=== PATIENT | male | born 1960 | race Caucasian/White ===

== ENCOUNTER 2024-12-11 11:25 | Emergency (ER) | payer MEDICARE, SELFPAY ==
[2024-12-11 11:41] VITALS: BP 152/71; PULSE 60; RESP 20; TEMP 36.8; O2SAT 97
--- NOTE | 2024-12-11 11:49 | ED.WOUNDLAC ---
HPI - Wound/Laceration General Chief Complaint: Wound/Laceration Stated Complaint: Left Hand Middle Finger Laceration patient presents to the [facility] accompanied by spouse with complaints of injury to left index and middle fingers just prior to arrival at [facility]. 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 Patient believes he may have taken a small chunk out of the middle finger. Patient unsure of when his last tetanus vaccination was. Patient reports holding pressure to the area but no other remedies attempted to stop bleeding. Some numbness, tingling, and shooting pain in the left middle finger. Related Data Home Medications ?Medication ?Instructions ?Recorded ?Confirmed ?Last Taken ?Type aspirin 81 mg tablet,delayed 81 mg PO DAILY 12/11/24 Unknown History release (Adult Aspirin Regimen) Allergies Allergy/AdvReac Type Severity Reaction Status Date / Time No Known Allergies Allergy Verified 12/11/24 12:05 Review of Systems Constitutional: Constitutional: Reports as per HPI, Denies chills, Denies fatigue, Denies fever(s) and Denies weakness Eyes: Eyes: Reports no additional eye complaints ENT: Reports system reviewed and no additional complaints, except as documented Cardiovascular: Cardiovascular: Reports no additional cardiovascular complaints Respiratory: Respiratory: Reports no additional respiratory complaints Gastrointestinal: Gastrointestinal: Reports no additional gastrointestinal complaints Genitourinary: Genitourinary: Reports no additional male genitourinary complaints Musculoskeletal: Musculoskeletal: Reports as per HPI, Reports arthralgias and Denies joint swelling Integumentary/Breasts: Skin/Breast: Reports as per HPI Comments: Laceration left middle and index finger Neurologic: Reports as per HPI, Denies headache(s), Reports numbness and Denies weakness Psychiatric: Psychiatric: Reports no additional psychiatric complaints Endocrine: Endocrine: Reports no additional endocrine complaints Hematologic/Lymphatic: Hematologic/Lymphatic: Reports no additional hematologic/lymphatic complaints Allergic/Immunologic: Allergic/Immunologic: Reports no additional allergic/immunologic complaints Exam Const: General: healthy appearing and no acute distress Nutritional Appearance: well nourished Orientation/consciousness: patient oriented x3 Limitations: no limitations Resp: Effort & Inspection: normal respiratory effort Auscultation: clear to auscultation bilaterally Cardio: Rate: regular rate Rhythm: regular rhythm Skin: General skin exam: normal color Rashes: no rashes Wounds: wounds noted Other: small c-shaped laceration to left index finger- 0.7cm long. large avulsion to left middle finger palmar side 2.5cm in diameter- moderate bleeding noted. open wound bed with adipose tissue throughout. no tendon, muscle, or bone open from wound. Neuro: General: patient oriented x3 and moves all extremities Speech: normal speech Gait exam (Neuro): Normal gait present Extrem: Left upper extremity: hand (large avulsion/open wound 3rd digit 2.5cm in diameter. ) abnormal to inspection, normal capillary refill, neuromotor exam normal, neurosensory exam normal, tendon exam normal, tenderness, normal ROM of fingers and laceration (2nd digit, palmar side .7cm long c-shaped. ); no swelling Psych: Mental Status: mental status grossly normal Affect: normal affect Attitude: cooperative Course Course Level of Care: Express Care Visit Vital Signs Vital signs: Vital Signs Temperature 98.3 F 12/11/24 11:41 Pulse Rate 60 12/11/24 11:41 Respiratory Rate 20 12/11/24 11:41 Blood Pressure 152/71 H 12/11/24 11:41 Pulse Oximetry 97 12/11/24 11:41 Oxygen Delivery Room Air 12/11/24 11:41 Temperature 98.3 F 12/11/24 11:41 Pulse Rate 60 12/11/24 11:41 Respiratory Rate 20 12/11/24 11:41 Blood Pressure 152/71 H 12/11/24 11:41 Pulse Oximetry 97 12/11/24 11:41 Oxygen Delivery Room Air 12/11/24 11:41 Procedures Laceration Laceration 1: Date: 12/11/24 Time: 12:04 Site: hand Side (If applicable): left Size (cm): 2.5 Description: other (avulsion) Depth: simple, single layer (all skin removed down to adipose tissue ) Pre-repair: wound explored, irrigated extensively and deep structures intact ====== Skin Level ====== Skin layer closed with: other (bleeding controlled with surgicel ) ====== Subcutaneous Layer ====== ====== Muscle Layer ====== ====== Tendon Layer ====== Dressing: surgicel with pressure dressing using coban. Laceration 2: Date: 12/11/24 Time: 12:10 Site: hand Side (If applicable): left (2nd digit) Size (cm): 0.7 Description: linear (c-chaped) Depth: simple, single layer Pre-repair: wound explored, irrigated and deep structures intact ====== Skin Level ====== Skin layer closed with: dermabond ====== Subcutaneous Layer ====== ====== Muscle Layer ====== ====== Tendon Layer ====== MDM - Wound/Laceration MDM Narrative Medical decision making narrative: large open wound noted to the middle finger. Bleeding controlled with Surgicel, no protrusion or visualization muscle, tendon, or bone. Only fatty tissue and wound bed. Educated patient on cleaning wound and wound care very small laceration noted to index finger closed with dermabond. The patient was evaluated by myself in the [facility]. 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 Available medical records were reviewed at this time. Exam findings show no acute concerns or changes; patient is non-toxic appearing and is in no distress. Patient is appropriate for outpatient treatment and follow-up. I have evaluated and discussed social determinants of health with the patient that could potentially impact subsequent diagnosis and treatment plans. Differential diagnosis and treatment plan were discussed with the patient. Patient agrees with discussion and after shared medical decision making agrees with plan of care. All questions were answered to the patient's satisfaction. Differential Diagnosis Differential diagnosis: Likely laceration, abrasion and avulsion of skin Medical Records Attestation: I reviewed the patient's medical records. Discharge Plan Discharge Clinical Impression: Open wound of left middle finger, Laceration of left index finger w/o foreign body w/o damage to nail Patient Disposition: Home Condition: Stable Instructions: Antibiotic Form, Skin Adhesive Care (ED), Acute Wounds (ED) Additional Instructions: we have got your wound to stop bleeding using Surgicel which is a type of bandage that clots the wound. Leave this on for 48 hours. Soak in warm water to remove this bandage until it comes off easily. Do not pull or this can cause more bleeding. if you continue to have bleeding we may do another round of the Surgicel bandage that we have given to you upon discharge at [facility] after removing this bandage used gentle wound care daily with warm water and gentle soap. do not use alcohol or peroxide then may apply Vaseline or Aquaphor to the area and cover with a bandage watch for signs and symptoms of infection including redness, colored drainage, increased pain, or swelling to the area. Follow-up with primary care in 1 week if symptoms not improving Skin adhesive care: -adhesive works like a bandage; do not use antibiotic ointment as it can break down the adhesive -You can shower while the adhesive is on your skin, but do not take a bath or soak or scrub the area for 7-10 days. Dry your skin by patting it gently with a towel. -The adhesive will peel off on its own; usually by 5-10days. If after 10 days, you still have adhesive on you, you can use antibiotic ointment or petroleum jelly to get it off. After you heal, you should protect the scar from the sun. Use sunscreen on the area or wear clothes or a hat that covers the scar. Follow up with your PCP is needed Patient Language: Swedish Follow-up/Referrals: Jose Mccoy MD [Physician, Plastic Surgery] Referral Note: call if complications from wound on left middle finger. Dangelo,Walter Osullivan MD [Primary Care Provider, Unknown] Time of Disposition: 12:15
[2024-12-11] MEDS: CELLULOSE OXIDIZED 2 x 14 INCH 1 PKT XX (12:05)
[2024-12-11] MEDS: TETANUS,DIPHTHERIA,AC PERTUSSIS ADULT (0.5 ML) BOOSTRIX IM (12:06)
== END 2024-12-11 12:20 | disposition home or self-care (01) ==
PROVIDERS: Emergency Provider Nurse Practitioner Family; PCP Internal Medicine
DX: S61.211A Laceration without foreign body of left index finger without damage to nail, initial encounter (principal); S61.203A Unspecified open wound of left middle finger without damage to nail, initial encounter; W29.3XXA Contact with powered garden and outdoor hand tools and machinery, initial encounter; Z23 Encounter for immunization
CPT/HCPCS: 12001; 90471; 90715; 99212; G0463